=== PATIENT | female | born 1990 | race Caucasian/White ===

== ENCOUNTER 2020-07-21 06:52 | Inpatient (IN) ==
[2020-07-21] MEDS ORDERED: OXYTOCIN 30 UNITS/500 ML BAG IV PRN ×2 (09:32→10:04)
--- NOTE | 2020-07-21 09:32 | Obstetrical Progress Note ---
Date of Service July 21, 2020 Subjective Met pt and spouse pt doing well FHR; CAT1 SROM at 06;00HRs-Clear VE: 3-4/50/-1 ctx irregular EFW by leopards; 8-9lbs will start Pitocin at 10;00 AM if not in spontaneous labor Results & Data ([facility]) Vital Signs (Past 12 Hours) Vital Signs Temp Pulse Resp BP 07/21/20 09:10 36.6 C 122 H 18 135/97 07/21/20 07:42 122 H 135/97 07/21/20 07:28 122 H 135/97 07/21/20 07:04 117 H 161/93 H 07/21/20 07:00 36.8 C 18
[2020-07-21] MEDS: LACTATED RINGER'S 1,000 ML IV PRN ×4 (15:28→23:30)
[2020-07-21] MEDS ORDERED: BUTORPHANOL TARTRATE 1 MG/ML VIAL IV PRN (15:47)
[2020-07-21] MEDS ORDERED: ePHEDrine sulfate 50 MG/ML AMP ONE (16:05)
[2020-07-21] MEDS ORDERED: fentaNYL citrate 100 MCG/2 ML VIAL ONE (16:05)
[2020-07-21] MEDS ORDERED: SODIUM CHLORIDE 0.9% INJ 10 ML VIAL ONE (16:05)
[2020-07-21] MEDS ORDERED: BUPIVACAINE 0.25% 30 ML VIAL ONE (16:05)
[2020-07-21] MEDS ORDERED: fentaNYL 2MCG/ML ROPIVACAINE 1.25MG/ML 100 ML BAG EPI ONE (16:06)
--- NOTE | 2020-07-21 16:10 | Anesthesiology Consultation ---
Date of Service July 21, 2020 Assessment & Plan (1) Encounter for pre-operative examination: Chart Review Chart Review: Acceptable Risk for Labor Epidural Consults Requested none ASA ASA2 Proposed Anesthesia Anesthesia Type: Labor Epidural Risk / Benefits Reviewed With: PT / POA / Parent / Guardian, Accepts Plan and Informed Consent Obtained History Height/Weight Height: 5 ft 8 in Weight: 96 kg Allergies Allergy/AdvReac Type Severity Reaction Status Date / Time Sulfa (Sulfonamide Allergy Unknown Hives Verified 02/03/19 08:42 Antibiotics) Iodinated Contrast Media AdvReac Unknown Hives Verified 02/03/19 08:42 [Iodinated Contrast- Oral and IV Dye] Medications Home Medications Medication Instructions Recorded Confirmed Last Taken multivitamin 1 tab PO QAM 02/01/19 07/21/20 07/20/20 paroxetine HCl [Paxil] 20 mg PO QAM 02/01/19 07/21/20 07/20/20 Active Medications Generic Name Dose Route Start Last Admin Trade Name Freq PRN Reason Stop Dose Admin Butorphanol Tartrate 1 mg 07/21/20 15:47 07/21/20 15:57 Butorphanol Tartrate 1 Mg/Ml Vial IV 08/20/20 15:46 1 mg Q4H PRN Administration Pain Oxytocin 30 units in 500 mls @ 2 mls/hr 07/21/20 09:32 07/21/20 15:30 Pitocin IV 07/23/20 09:31 0.12 units/hr .Q24H PRN 2 mls/hr Labor Induction/Augmentation Administration Protocol 0.12 UNITS/HR Lactated Ringer's 1,000 mls @ 125 mls/hr 07/21/20 10:04 07/21/20 15:29 Lr IV 07/23/20 10:03 999 mls/hr .Q8H PRN Administration L&D Protocol Protocol Past Medical History Medical History Anxiety GERD (gastroesophageal reflux disease) HX Gestational diabetes Exercise / Class Metabolic Activity II 4-5 Yardwork/Stairs/Walk up hill Past Family History Family History Other Hypertension Past Surgical History Surgical History History of esophagogastroduodenoscopy (EGD) History of shoulder surgery History of tooth extraction WISDOM TEETH Past Anesthesia History No Hx of Anesthesia Complications and No Family Hx of Anesthesia Complications History of PONV No Hx of PONV and No Hx of Motion Sickness Social History Smoking Status: Former smoker Do You Dip or Chew Tobacco: No Hx Alcohol Use: Yes Alcohol type: wine alcohol intake frequency: a few times a month Hx Substance Use: No substance use type: does not use Physical Exam Vital Signs Last Vital Signs Temp 98.1 F 07/21/20 15:30 Pulse 123 H 07/21/20 16:07 Resp 18 07/21/20 15:30 BP 139/88 07/21/20 16:01 Pulse Ox 99 07/21/20 16:07 ENMT Mouth: no dentition abnormality Thyromental Distance: > or= 3.5 Finger Breadths Mallampati Class: II Neck normal visual inspection Respiratory normal respiratory effort Auscultation: lungs clear to auscultation bilaterally Cardiovascular Rate/Rhythm: regular rate and regular rhythm
[2020-07-21] MEDS ORDERED: diphenhydrAMINE 50 MG/ML VIAL IV PRN (16:29)
[2020-07-21] MEDS ORDERED: NALOXONE HCL 1 MG in SODIUM CHLORIDE 0.9% 1000ML 1,000 ML IV PRN (16:29)
[2020-07-21] MEDS ORDERED: NALOXONE HCL 0.4 MG/1 ML VIAL/CARP IV PRN (16:29)
[2020-07-21] MEDS ORDERED: fentaNYL 2MCG/ML ROPIVACAINE 1.25MG/ML 100 ML BAG EPI PRN (16:29)
[2020-07-21] MEDS ORDERED: ePHEDrine sulfate 50 MG/ML AMP IV PRN (16:29)
[2020-07-21] MEDS ORDERED: ONDANSETRON INJ 2 MG/ML 2 ML VIAL IV PRN (16:29)
[2020-07-21 16:43] LABS: Hematocrit (blood only) 36.7 % (37-47); Hemoglobin 13.4 g/dL (12.0-16.0); Mean Platelet Volume 12.1 fL (7.4-10.4); Platelet Count 188 K/uL (130-400); RDW Coefficient of Variation 13.6 % (11.5-14.5); Red Blood Count 4.32 M/uL (4.2-5.4); White Blood Count 10.29 K/uL (4.8-10.8)
[2020-07-21 16:44] LABS: Mean Corpuscular Hgb Conc 36.5 g/dL (32-36)
--- NOTE | 2020-07-22 01:03 | Obstetrical Progress Note ---
Date of Service July 22, 2020 Assessment & Plan Admission and Anticipated Discharge Date Admission Date: July 21, 2020 Subjective Pt doing well FHR; CAT1 Ctx 1-3 VE 9/100/-1 On Pitocin Results & Data ([facility]) Vital Signs (Past 12 Hours) Vital Signs Temp Pulse Resp BP Pulse Ox 07/22/20 01:00 127 H 136/79 07/22/20 00:57 110 H 99 07/22/20 00:52 116 H 100 07/22/20 00:49 120 H 137/84 07/22/20 00:47 118 H 99 07/22/20 00:42 101 H 98 07/22/20 00:39 103 H 126/74 07/22/20 00:37 104 H 98 07/22/20 00:32 96 H 99 07/22/20 00:29 95 H 134/74 07/22/20 00:27 97 H 99 07/22/20 00:22 100 H 98 07/22/20 00:19 96 H 140/70 07/22/20 00:17 105 H 97 07/22/20 00:12 101 H 100 07/22/20 00:09 96 H 152/87 H 07/22/20 00:07 100 H 98 07/22/20 00:02 99 H 100 07/22/20 00:00 18 07/21/20 23:59 100 H 140/79 07/21/20 23:57 110 H 99 07/21/20 23:52 96 H 100 07/21/20 23:49 101 H 148/79 H 07/21/20 23:47 100 H 100 07/21/20 23:42 107 H 100 07/21/20 23:39 100 H 155/83 H 07/21/20 23:37 100 H 100 07/21/20 23:32 105 H 100 07/21/20 23:31 18 07/21/20 23:29 93 H 159/85 H 07/21/20 23:27 94 H 100 07/21/20 23:22 106 H 100 07/21/20 23:20 105 H 155/81 H 07/21/20 23:17 102 H 99 07/21/20 23:12 113 H 100 07/21/20 23:10 98 H 142/99 H 07/21/20 23:07 108 H 100 07/21/20 23:02 120 H 100 07/21/20 23:01 37.1 C 18 07/21/20 22:59 115 H 157/94 H 07/21/20 22:57 116 H 99 07/21/20 22:52 98 H 100 07/21/20 22:49 96 H 162/101 H 07/21/20 22:47 102 H 99 07/21/20 22:42 104 H 98 07/21/20 22:39 101 H 174/99 H 07/21/20 22:37 116 H 99 07/21/20 22:32 105 H 99 07/21/20 22:31 18 07/21/20 22:30 95 H 175/91 H 07/21/20 22:27 103 H 100 07/21/20 22:22 89 100 07/21/20 22:19 100 H 172/92 H 07/21/20 22:17 109 H 100 07/21/20 22:12 112 H 100 07/21/20 22:09 98 H 181/95 H 07/21/20 22:07 103 H 100 07/21/20 22:02 103 H 99 07/21/20 22:01 18 07/21/20 21:58 90 165/100 H 07/21/20 21:57 93 H 176/101 H 100 07/21/20 21:52 100 H 100 07/21/20 21:49 93 H 178/103 H 07/21/20 21:47 95 H 100 07/21/20 21:42 96 H 100 07/21/20 21:40 97 H 178/102 H 07/21/20 21:37 93 H 100 07/21/20 21:32 100 H 99 07/21/20 21:29 87 152/101 H 07/21/20 21:27 102 H 100 07/21/20 21:22 37.1 C 94 H 18 100 07/21/20 21:19 97 H 162/92 H 07/21/20 21:17 92 H 100 07/21/20 21:12 88 98 07/21/20 21:09 90 139/90 07/21/20 21:07 89 98 07/21/20 21:02 88 99 07/21/20 21:00 85 147/91 H 07/21/20 20:57 88 98 07/21/20 20:52 86 98 07/21/20 20:49 80 137/88 07/21/20 20:47 97 H 99 07/21/20 20:42 87 99 07/21/20 20:39 98 H 149/96 H 07/21/20 20:37 90 99 07/21/20 20:32 84 99 07/21/20 20:29 86 147/92 H 07/21/20 20:27 84 96 07/21/20 20:22 87 98 07/21/20 20:20 81 145/84 H 07/21/20 20:17 84 97 07/21/20 20:12 93 H 98 07/21/20 20:10 93 H 145/90 H 07/21/20 20:07 88 97 07/21/20 20:02 92 H 97 07/21/20 20:01 18 07/21/20 20:00 91 H 139/99 07/21/20 19:57 91 H 99 07/21/20 19:52 91 H 97 07/21/20 19:48 88 149/92 H 07/21/20 19:47 91 H 98 07/21/20 19:42 91 H 98 07/21/20 19:38 93 H 142/90 H 07/21/20 19:37 98 H 98 07/21/20 19:32 87 98 07/21/20 19:31 18 07/21/20 19:29 93 H 137/89 07/21/20 19:27 86 98 07/21/20 19:22 96 H 97 07/21/20 19:19 83 150/89 H 07/21/20 19:17 90 99 07/21/20 19:15 37.1 C 18 07/21/20 19:12 104 H 98 07/21/20 19:09 101 H 143/95 H 07/21/20 19:07 130 H 98 07/21/20 19:02 120 H 100 07/21/20 19:00 108 H 124/82 07/21/20 18:57 99 H 97 07/21/20 18:52 99 H 98 07/21/20 18:49 83 131/69 07/21/20 18:47 92 H 98 07/21/20 18:42 91 H 97 07/21/20 18:38 91 H 130/65 07/21/20 18:37 96 H 98 07/21/20 18:32 91 H 98 07/21/20 18:30 90 131/68 07/21/20 18:27 94 H 97 07/21/20 18:22 93 H 98 07/21/20 18:19 98 H 125/74 07/21/20 18:17 109 H 98 07/21/20 18:12 92 H 98 07/21/20 18:09 94 H 120/78 07/21/20 18:07 99 H 98 07/21/20 18:02 103 H 98 07/21/20 17:59 88 122/72 07/21/20 17:57 99 H 97 07/21/20 17:52 102 H 99 07/21/20 17:49 118 H 137/88 07/21/20 17:47 103 H 98 07/21/20 17:42 93 H 98 07/21/20 17:39 90 132/79 07/21/20 17:37 99 H 99 07/21/20 17:32 101 H 97 07/21/20 17:30 18 07/21/20 17:29 96 H 149/93 H 07/21/20 17:27 100 H 97 07/21/20 17:22 93 H 98 07/21/20 17:18 93 H 142/91 H 07/21/20 17:17 91 H 99 07/21/20 17:12 87 99 07/21/20 17:08 90 137/89 07/21/20 17:07 91 H 99 07/21/20 17:02 87 99 07/21/20 16:59 88 137/89 07/21/20 16:57 98 H 99 07/21/20 16:56 36.9 C 18 07/21/20 16:52 88 99 07/21/20 16:47 103 H 99 07/21/20 16:46 110 H 134/94 07/21/20 16:43 111 H 129/89 07/21/20 16:42 109 H 100 07/21/20 16:40 105 H 134/89 07/21/20 16:37 116 H 138/89 99 07/21/20 16:34 114 H 141/81 H 07/21/20 16:32 112 H 99 07/21/20 16:31 111 H 145/82 H 07/21/20 16:30 18 07/21/20 16:28 120 H 144/91 H 07/21/20 16:27 117 H 99 07/21/20 16:25 99 H 156/94 H 07/21/20 16:22 105 H 158/99 H 99 07/21/20 16:19 101 H 168/102 H 07/21/20 16:17 115 H 100 07/21/20 16:12 117 H 100 07/21/20 16:11 120 H 175/116 H 07/21/20 16:07 123 H 99 07/21/20 16:01 100 H 139/88 07/21/20 15:51 96 H 136/86 07/21/20 15:41 98 H 147/91 H 07/21/20 15:31 101 H 142/82 H 07/21/20 15:30 36.7 C 18 07/21/20 14:30 18 07/21/20 13:42 36.8 C 18
[2020-07-22] MEDS ORDERED: METHYLERGONOVINE MALEATE 0.2 MG/ML AMP ONE (04:59)
[2020-07-22 05:15] LABS: Base Excess Cord Arterial Bld -3.2 mEq/L (-9-1.8); Base Excess Cord Venous Blood -3.6 mEq/L (-7.7-1.9); CO2 Cord Arterial Blood 37 mmHg (39.1-73.5); Cord Venous Blood HCO3 21 mmol/L (18.4-26.8); Cord Venous Blood PCO2 36 mmHg (30.4-57.2); Cord Venous Blood PO2 27 mmHg (14.1-43.3); Cord Venous Blood pH 7.38 (7.20-7.44); HCO3 Cord Arterial Blood 21 mmol/L (19.7-28.5); PO2 Cord Arterial Blood 27 mmHg (4.1-31.7); pH Cord Arterial Blood 7.38 (7.1-7.38)
[2020-07-22] MEDS: LACTATED RINGER'S 1,000 ML IV PRN ×2 (06:01→07:41)
[2020-07-22] MEDS ORDERED: miSOPROStoL 200 MCG TAB ONE (06:14)
[2020-07-22] MEDS ORDERED: LIDOCAINE HCL 1% 20 ML VIAL ONE (06:18)
[2020-07-22] MEDS ORDERED: METHYLERGONOVINE MALEATE 0.2 MG/ML AMP IM ONE (06:42)
[2020-07-22] MEDS ORDERED: BENZOCAINE 20% AER SPR 82.5 GM CAN EXT PRN (06:42)
[2020-07-22] MEDS ORDERED: SUPERCREAM 0.870% 15 GM JAR EXT PRN (06:42)
[2020-07-22] MEDS ORDERED: ACETAMINOPHEN 325 MG TAB PO PRN (06:42)
[2020-07-22] MEDS ORDERED: miSOPROStoL 200 MCG TAB PR ONE (06:42)
[2020-07-22] MEDS ORDERED: bisacodyL 10 MG SUPP PR PRN (06:42)
[2020-07-22] MEDS ORDERED: DIPHTHERIA/TETANUS/PERTUSSIS 0.5 ML SYR/VIAL IM ONE (06:42)
[2020-07-22] MEDS ORDERED: OXYTOCIN 30 UNITS/500 ML BAG IV PRN (06:42)
[2020-07-22] MEDS: ceFAZolin 1000MG 1,000 MG/7.5 ML SYR IV SCH ×3 (07:18→22:21)
[2020-07-22] MEDS: OXYTOCIN 20 UNITS in LACTATED RINGER'S 1,000 ML IV SCH ×2 (07:46→15:27)
[2020-07-22] MEDS ORDERED: CALCIUM CARBONATE 500 MG CHEWABLE TAB PO ONE (07:58)
[2020-07-22] MEDS ORDERED: CALCIUM CARBONATE 500 MG CHEWABLE TAB ONE (08:05)
[2020-07-22] MEDS: DOCUSATE SODIUM 100 MG CAP PO SCH ×2 (08:44→20:13)
[2020-07-22] MEDS: PRENATAL VITAMIN 1 TAB PO SCH (08:45)
--- NOTE | 2020-07-22 09:40 | Anesthesia Procedure Note ---
Date of Service July 22, 2020 Anesthesia Post Epidural Note Vital Signs Vital Signs: Temp Pulse Resp BP Pulse Ox 98.6 F 120 H 18 89/57 L 99 07/22/20 06:55 07/22/20 09:35 07/22/20 09:20 07/22/20 09:24 07/22/20 09:35 Pain Intensity Lower Abdomen: Pain Intensity: 4 Notes Mental Status: alert / awake / arousable and participated in evaluation Nausea / Vomiting: adequately controlled Pain: adequately controlled Airway Patency, RR, SpO2: stable & adequate BP & HR: stable & adequate Hydration State: stable & adequate Neuraxial Anesthesia: was administered and sensory block is resolving Anesthetic Complications: no major complications apparent and Pt Satisfied with anesthetic care Epidural: Removed without complications and With tip intact
[2020-07-22] MEDS: IBUPROFEN 600 MG TAB PO PRN ×2 (12:52→20:13)
[2020-07-22 12:54] LABS: Hematocrit (blood only) 23.9 % (37-47); Hemoglobin 8.9 g/dL (12.0-16.0)
[2020-07-22] MEDS: SERTRALINE HCL 50 MG TABLET PO SCH (13:10)
[2020-07-22] MEDS ORDERED: SERTRALINE HCL 50 MG TABLET PO SCH (21:00)
[2020-07-23] MEDS: IBUPROFEN 600 MG TAB PO PRN ×2 (06:01→15:34)
--- NOTE | 2020-07-23 08:01 | Delivery Summary ---
DATE OF OPERATION: 07/22/2020 The patient delivered a live infant in occiput anterior presentation with tight nuchal cord. Nuchal cord was clamped and cut. Infant was delivered and placed on mother's abdomen. Cord blood and cord gases were obtained. Placenta was not spontaneously delivered and it was therefore manually removed. A banjo curette and ultrasound was brought to the bedside and curettage of the uterus was performed at the bedside. There was good hemostasis. On ultrasound, it appeared that there were no retained products. Examination of the vagina and perineum showed a third-degree midline laceration. This was repaired in layers with 2-0 and 3-0 Vicryl. Rectal exam post repair showed good sphincter tone. There are no sutures palpated in the rectum. There was good hemostasis. The infant's weight and Apgars in the pediatric record. All instruments were removed from the vagina and accounted for x2 including sponges, needles and retractors. Estimated blood loss is 600 mL. I attest to the content of the Intraoperative Record and any orders documented therein. Any exception s are noted below.
[2020-07-23] MEDS: ceFAZolin 1000MG 1,000 MG/7.5 ML SYR IV SCH ×3 (08:09→23:38)
[2020-07-23] MEDS: DOCUSATE SODIUM 100 MG CAP PO SCH ×2 (08:14→21:04)
[2020-07-23] MEDS: PRENATAL VITAMIN 1 TAB PO SCH (08:14)
--- NOTE | 2020-07-23 10:55 | Obstetrical Progress Note ---
Date of Service July 23, 2020 Assessment & Plan Admission and Anticipated Discharge Date Admission Date: July 21, 2020 Subjective Patient is seen and examined. She feels well, no complaints. Ambulating without dizziness Voiding without difficulty Tolerating regular diet with out N&V Bleeding is minimal No fever/ chills/ CP/ SOB/ N&V/ Leg pain Breast feeding without problems Vital Signs Temp Pulse Pulse Resp BP BP Pulse Ox 07/23/20 08:15 36.4 C L 106 H 16 109/71 98 07/23/20 04:00 36.7 C 93 H 18 117/72 07/22/20 23:30 36.9 C 101 H 18 108/69 07/22/20 20:15 36.9 C 130 H 18 127/83 99 07/22/20 15:15 37 C 114 H 16 113/73 97 07/22/20 13:15 37.0 C 136 H 18 119/75 07/22/20 13:00 37.0 C 16 07/22/20 12:55 139 H 99 07/22/20 12:54 136 H 119/75 07/22/20 12:50 139 H 99 07/22/20 12:45 139 H 99 07/22/20 12:40 141 H 127/60 99 07/22/20 12:35 136 H 100 07/22/20 12:30 135 H 99 07/22/20 12:25 138 H 99 07/22/20 12:24 142 H 119/69 07/22/20 12:20 146 H 99 07/22/20 12:15 134 H 100 07/22/20 12:10 128 H 117/75 100 07/22/20 12:05 134 H 100 07/22/20 12:00 134 H 99 07/22/20 11:55 133 H 99 07/22/20 11:54 131 H 118/57 L 07/22/20 11:50 133 H 99 07/22/20 11:45 137 H 99 07/22/20 11:40 140 H 98 07/22/20 11:39 136 H 118/57 L 07/22/20 11:35 144 H 99 07/22/20 11:30 146 H 98 07/22/20 11:25 139 H 98 07/22/20 11:24 144 H 126/59 L 07/22/20 11:20 144 H 98 07/22/20 11:15 150 H 133/79 99 07/22/20 11:10 148 H 98 07/22/20 11:06 37.0 C 16 07/22/20 11:05 156 H 98 07/22/20 11:00 155 H 99 07/22/20 10:55 153 H 99 Intake and Output 07/22/20 07/23/20 07/23/20 22:59 06:59 14:59 Intake Total 1377.084 / 2714.584 Output Total 1100 / 1100 Balance 1377.084 / 1614.584 -1100 / 1614.584 Intake: IV 1377.084 / 2714.584 Pitocin 20 Units In Lr 1,000 ml 1377.084 / 1377.084 @ 125 mls/hr IV .Q8H1M JOSE ANGEL Rx# :[id number] Output: Urine 1100 / 1100 Other: # Unmeasured Voids 1 PE: General: Alert, orientedx3, NAD Abd: soft, NT, fundus firm, below Umbilicus Perineum intact, Lochia rubra minimal Ext; NT, no edema AP: 30 yo s/p , ppd# 1 VSS Afebrile doing well Am CBC pending Start iron Continue routine care All questions were answered D/C home tomorrow Results & Data ([facility]) Vital Signs (Past 12 Hours) Vital Signs Temp Pulse Resp BP Pulse Ox 07/23/20 08:15 36.4 C L 106 H 16 109/71 98 07/23/20 04:00 36.7 C 93 H 18 117/72 07/22/20 23:30 36.9 C 101 H 18 108/69
[2020-07-23 11:25] LABS: Hemoglobin 6.9 g/dL (12.0-16.0); Mean Corpuscular Hemoglobin 31.1 pg (25-34); Mean Corpuscular Hgb Conc 36.3 g/dL (32-36); Mean Corpuscular Volume 85.6 fL (80-100); Platelet Count 153 K/uL (130-400); RDW Coefficient of Variation 14.4 % (11.5-14.5); Red Blood Count 2.22 M/uL (4.2-5.4); White Blood Count 11.42 K/uL (4.8-10.8)
[2020-07-23] MEDS ORDERED: diphenhydrAMINE Capsule 25 MG CAP PO ONE (11:35)
[2020-07-23] MEDS ORDERED: SODIUM CHLORIDE 0.9% 250 ML IV PRN (11:35)
--- NOTE | 2020-07-23 11:39 | Obstetrical Progress Note ---
Date of Service July 23, 2020 Assessment & Plan Admission and Anticipated Discharge Date Admission Date: July 21, 2020 Subjective Patient is reevaluated Hemoglobin is 6.9 hematocrit is 19 Patient states she was dizzy lightheaded yesterday feels better today She just feels tired and weak Pulse has been elevated since Discussed blood transfusion with risks and benefits versus oral iron therapy She understands all and accepts blood transfusion She signed an informed consent. Lab Results 07/21/20 07/21/20 07/22/20 Range/Units 10:21 10:21 04:51 WBC 10.29 (4.8-10.8) K/uL RBC 4.32 (4.2-5.4) M/uL Hgb 13.4 (12.0-16.0) g/dL Hct 36.7 L (37-47) % MCV 85.0 (80-100) fL MCH 31.0 (25-34) pg MCHC 36.5 H (32-36) g/dL RDW Std Deviation 42.0 (36.4-46.3) fL RDW Coeff of Neeta 13.6 (11.5-14.5) % Plt Count 188 (130-400) K/uL MPV 12.1 H (7.4-10.4) fL Cord ABG pH 7.38 (7.1-7.38) Cord ABG pCO2 37 L (39.1-73.5) mmHg Cord ABG pO2 27 (4.1-31.7) mmHg Cord ABG HCO3 21 (19.7-28.5) mmol/L Cord ABG Base Excess -3.2 (-9-1.8) mEq/L Cord ABG O2 Sat 62.0 H (<60) % Cord VBG pH (7.20-7.44) Cord VBG pCO2 (30.4-57.2) mmHg Cord VBG pO2 (14.1-43.3) mmHg Cord VBG HCO3 (18.4-26.8) mmol/L Cord VBG Base Excess (-7.7-1.9) mEq/L Cord VBG O2 Sat (<68) % Blood Gas Comments PLATA Crossmatch See Detail 07/22/20 07/22/20 07/23/20 Range/Units 04:51 12:40 10:52 WBC 11.42 H (4.8-10.8) K/uL RBC 2.22 L (4.2-5.4) M/uL Hgb 8.9 L D 6.9 L* (12.0-16.0) g/dL Hct 23.9 L 19.0 L* (37-47) % MCV 85.6 (80-100) fL MCH 31.1 (25-34) pg MCHC 36.3 H (32-36) g/dL RDW Std Deviation 44.0 (36.4-46.3) fL RDW Coeff of Neeta 14.4 (11.5-14.5) % Plt Count 153 (130-400) K/uL MPV 11.0 H (7.4-10.4) fL Cord ABG pH (7.1-7.38) Cord ABG pCO2 (39.1-73.5) mmHg Cord ABG pO2 (4.1-31.7) mmHg Cord ABG HCO3 (19.7-28.5) mmol/L Cord ABG Base Excess (-9-1.8) mEq/L Cord ABG O2 Sat (<60) % Cord VBG pH 7.38 (7.20-7.44) Cord VBG pCO2 36 (30.4-57.2) mmHg Cord VBG pO2 27 (14.1-43.3) mmHg Cord VBG HCO3 21 (18.4-26.8) mmol/L Cord VBG Base Excess -3.6 (-7.7-1.9) mEq/L Cord VBG O2 Sat 65.0 (<68) % Blood Gas Comments PLATA Crossmatch Results & Data ([facility]) Vital Signs (Past 12 Hours) Vital Signs Temp Pulse Resp BP Pulse Ox 07/23/20 08:15 36.4 C L 106 H 16 109/71 98 07/23/20 04:00 36.7 C 93 H 18 117/72
[2020-07-23] MEDS: SERTRALINE HCL 50 MG TABLET PO SCH (12:03)
[2020-07-23] MEDS: FERROUS SULFATE 325 MG TAB PO SCH ×2 (12:03→18:53)
--- NOTE | 2020-07-23 15:42 | Obstetrical Progress Note ---
Date of Service July 23, 2020 Assessment & Plan Admission and Anticipated Discharge Date Admission Date: July 21, 2020 Subjective Patient received 1st unit of PRBCC and feels better already No side effects nor rx VSS Afebrile Breast feeding her baby Continue to monitor and Results & Data ([facility]) Vital Signs (Past 12 Hours) Vital Signs Temp Pulse Pulse Resp BP BP Pulse Ox 07/23/20 14:15 37.2 C 109 H 16 126/81 98 07/23/20 13:45 36.8 C 112 H 20 125/80 97 07/23/20 13:30 37.0 C 112 H 18 128/83 97 07/23/20 13:11 36.5 C 120 H 18 135/86 99 07/23/20 12:34 37 C 121 H 16 109/71 07/23/20 08:15 36.4 C L 106 H 16 109/71 98 07/23/20 04:00 36.7 C 93 H 18 117/72
--- NOTE | 2020-07-23 17:13 | Obstetrical Progress Note ---
Date of Service July 23, 2020 Assessment & Plan Admission and Anticipated Discharge Date Admission Date: July 21, 2020 Subjective I was called that patient blood pressure went up, after second unit of packed red blood cell was started I came to see the patient who is nervous and crying. She felt right flank pain and cold sensation for about 30 seconds after second unit was started. Now she feels well no complaints other than being nervous. Patient denies headache, change in her vision, chest pain, shortness of breath, abdominal pain no leg pain. Her blood pressure was 167/99, repeat is 147/85. Pulse is 105 and pulse ox is 100% in room air. Physical exam Cardiovascular system, S1-S2 RRR Lungs clear to auscultation bilaterally Back, symmetric nontender no lesions No CVA tenderness bilaterally Abdomen soft nontender nondistended fundus firm, -3, vaginal bleeding scant Extremities, nontender no edema, Homans' sign negative bilaterally, hip motions nontender. Second unit of blood was held in taking back by blood bank team Plan to observe continuously and run some blood work and urine test for transfusion reaction. Results & Data ([facility]) Vital Signs (Past 12 Hours) Vital Signs Temp Pulse Pulse Resp BP BP Pulse Ox 07/23/20 16:32 36.5 C 99 H 16 125/81 98 07/23/20 15:15 36.7 C 103 H 16 119/83 99 07/23/20 14:15 37.2 C 109 H 16 126/81 98 07/23/20 13:45 36.8 C 112 H 20 125/80 97 07/23/20 13:30 37.0 C 112 H 18 128/83 97 07/23/20 13:11 36.5 C 120 H 18 135/86 99 07/23/20 12:34 37 C 121 H 16 109/71 07/23/20 08:15 36.4 C L 106 H 16 109/71 98
[2020-07-23 17:36] LABS: Hematocrit (blood only) 20.7 % (37-47); Hemoglobin 7.3 g/dL (12.0-16.0); Mean Corpuscular Hemoglobin 30.7 pg (25-34); Mean Corpuscular Hgb Conc 35.3 g/dL (32-36); Platelet Count 160 K/uL (130-400); RDW Coefficient of Variation 14.3 % (11.5-14.5); RDW Standard Deviation 44.2 fL (36.4-46.3); Red Blood Count 2.38 M/uL (4.2-5.4); White Blood Count 9.06 K/uL (4.8-10.8)
[2020-07-23 17:51] LABS: Basophils # (auto) 0.01 K/uL (0-0.2); Basophils % (auto) 0.1 %; Eosinophils # (auto) 0.02 K/uL (0-0.5); Eosinophils % (auto) 0.2 %; Immature Granulocytes # (auto) 0.03 K/uL (0.00-0.02); Immature Granulocytes % (auto) 0.3 %; Lymphocytes # (auto) 2.08 K/uL (1.2-3.4); Monocytes # (auto) 0.39 K/uL (0.11-0.59); Monocytes % (auto) 4.3 %; Neutrophils # (auto) 6.53 K/uL (1.4-6.5); Neutrophils % (auto) 72.1 %; RBC Morphology Unremarkable
[2020-07-23 17:56] LABS: Albumin Level 1.8 gm/dl (3.4-5.0); BUN Creatinine Ratio 11.6 (10-20); Calcium 7.8 mg/dl (8.5-10.1); Creatinine Clr Calc Pharmacy 161.9 ml/min; Est GFR (Non-African American) 120.8; Potassium 3.9 mmol/L (3.5-5.1)
[2020-07-23 17:59] LABS: Albumin Globulin Ratio 0.6 (0.9-2); Bilirubin,Total 0.4 mg/dl (0.2-1); Globulin 3.1 gm/dl (2.5-4.0); Total Protein 4.9 gm/dl (6.4-8.2)
--- NOTE | 2020-07-23 18:17 | Obstetrical Progress Note ---
Date of Service July 23, 2020 Assessment & Plan Admission and Anticipated Discharge Date Admission Date: July 21, 2020 Subjective Patient is reevaluated. She feels much better, no complaints. She is up to bathroom voided and ambulated in room without dizziness. H&H is slightly higher now and U/A is pending. Last BP: 148/ 90 Pulse ox: 99% RA Abnormal lab results 07/21/20 07/23/20 07/23/20 Range/Units 10:21 10:52 17:19 WBC 11.42 H (4.8-10.8) K/uL RBC 2.22 L 2.38 L (4.2-5.4) M/uL Hgb 6.9 L* 7.3 L (12.0-16.0) g/dL Hct 19.0 L* 20.7 L* (37-47) % MCHC 36.3 H (32-36) g/dL MPV 11.0 H 11.0 H (7.4-10.4) fL Neut # (Auto) 6.53 H (1.4-6.5) K/uL Immature Gran # (Auto) 0.03 H (0.00-0.02) K/uL Chloride (98-107) mmol/L Calcium (8.5-10.1) mg/dl Total Protein (6.4-8.2) gm/dl Albumin (3.4-5.0) gm/dl Albumin/Globulin Ratio (0.9-2) Crossmatch See Detail 07/23/20 Range/Units 17:19 WBC (4.8-10.8) K/uL RBC (4.2-5.4) M/uL Hgb (12.0-16.0) g/dL Hct (37-47) % MCHC (32-36) g/dL MPV (7.4-10.4) fL Neut # (Auto) (1.4-6.5) K/uL Immature Gran # (Auto) (0.00-0.02) K/uL Chloride 113 H (98-107) mmol/L Calcium 7.8 L (8.5-10.1) mg/dl Total Protein 4.9 L (6.4-8.2) gm/dl Albumin 1.8 L (3.4-5.0) gm/dl Albumin/Globulin Ratio 0.6 L (0.9-2) Crossmatch Discussed holding on 2nd unit and continue with oral iron therapy and iron rich food Discussed how to take iron All questions were answered Results & Data ([facility]) Vital Signs (Past 12 Hours) Vital Signs Temp Pulse Pulse Resp BP BP Pulse Ox 07/23/20 17:13 120 H 18 160/98 H 100 07/23/20 16:32 36.5 C 99 H 16 125/81 98 07/23/20 15:15 36.7 C 103 H 16 119/83 99 07/23/20 14:15 37.2 C 109 H 16 126/81 98 07/23/20 13:45 36.8 C 112 H 20 125/80 97 07/23/20 13:30 37.0 C 112 H 18 128/83 97 07/23/20 13:11 36.5 C 120 H 18 135/86 99 07/23/20 12:34 37 C 121 H 16 109/71 07/23/20 08:15 36.4 C L 106 H 16 109/71 98
[2020-07-23 18:49] LABS: Blood Urine 1+ (Negative)
[2020-07-23] MEDS ORDERED: bisacodyL 5 MG TABEC PO SCH (20:00)
[2020-07-23 21:38] LABS: Hematocrit (blood only) 20.9 % (37-47); Hemoglobin 7.3 g/dL (12.0-16.0); Mean Corpuscular Hemoglobin 30.3 pg (25-34); Mean Corpuscular Hgb Conc 34.9 g/dL (32-36); Mean Corpuscular Volume 86.7 fL (80-100); Mean Platelet Volume 10.7 fL (7.4-10.4); Platelet Count 156 K/uL (130-400); RDW Coefficient of Variation 14.1 % (11.5-14.5); Red Blood Count 2.41 M/uL (4.2-5.4); White Blood Count 8.53 K/uL (4.8-10.8)
[2020-07-23 22:39] LABS: Basophils # (auto) 0.02 K/uL (0-0.2); Basophils % (auto) 0.2 %; Eosinophils # (auto) 0.01 K/uL (0-0.5); Eosinophils % (auto) 0.1 %; Immature Granulocytes # (auto) 0.02 K/uL (0.00-0.02); Immature Granulocytes % (auto) 0.2 %; Lymphocytes # (auto) 1.79 K/uL (1.2-3.4); Monocytes # (auto) 0.45 K/uL (0.11-0.59); Monocytes % (auto) 5.3 %; Neutrophils # (auto) 6.24 K/uL (1.4-6.5); Neutrophils % (auto) 73.2 %; RBC Morphology Unremarkable
[2020-07-24 06:33] LABS: Hematocrit (blood only) 20.5 % (37-47); Hemoglobin 7.4 g/dL (12.0-16.0)
[2020-07-24] MEDS: FERROUS SULFATE 325 MG TAB PO SCH (07:33)
[2020-07-24] MEDS: ceFAZolin 1000MG 1,000 MG/7.5 ML SYR IV SCH ×2 (07:33→15:16)
[2020-07-24] MEDS: PRENATAL VITAMIN 1 TAB PO SCH (08:40)
[2020-07-24] MEDS: DOCUSATE SODIUM 100 MG CAP PO SCH ×2 (08:40→21:49)
[2020-07-24] MEDS: IBUPROFEN 600 MG TAB PO PRN ×2 (08:40→17:32)
[2020-07-24] MEDS: HYDROCORTISONE ACETATE 25 MG SUPP PR PRN (09:31)
--- NOTE | 2020-07-24 12:45 | Obstetrical Progress Note ---
Date of Service July 24, 2020 Assessment & Plan (1) Normal course: PPD #2 s/p retained placenta' Anemia PP- Pt received 1 unit PRBC Suspected transfusion Rx on an attempt for a second unit- transfusion was therefore terminated pt is however doing well H/H; Improved tachycardia, malaise or fatigue Plan Pt wants to stay one more day for monitoring anticipate disch tomorrow Subjective Ambulation: ambulating normally Voiding: no voiding problems Passing Gas:: Yes Diet Tolerance:: regular diet Lochia:: Small Feeding Type:: breast feeding Review of Systems All systems reviewed & are unremarkable except as noted in HPI & below Physical Exam Constitutional WD/WN, vitals as above well developed and well nourished Eyes PERRL, conjunctivae normal, anicteric sclerae Neck trachea midline, no thyromegaly Respiratory normal respiratory effort, lungs clear to auscultation Auscultation: no crackles, no rales and no wheezes Cardiovascular RRR, no murmur, no edema Gastrointestinal (Abdomen) normal bowel sounds, soft, nontender, no hepatosplenomegaly Uterus is below umbilicus Musculoskeletal no cyanosis or clubbing, extremities motor strength 5/5 Skin no rashes, warm and dry Neurologic patellar DTR's 2+ bilat, sensation intact Psychiatric A+Ox3, euthymic affect Genitourinary normal external appearance Results & Data ([facility]) Vital Signs (Past 12 Hours) Vital Signs Temp Pulse Pulse Resp BP Pulse Ox 07/24/20 07:30 36.9 C 96 H 18 133/89 98 07/24/20 04:30 36.7 C 96 H 18 125/86 100
[2020-07-24] MEDS: SERTRALINE HCL 50 MG TABLET PO SCH (13:16)
[2020-07-25] MEDS: IBUPROFEN 600 MG TAB PO PRN (06:27)
[2020-07-25] MEDS: FERROUS SULFATE 325 MG TAB PO SCH (07:55)
[2020-07-25 08:29] LABS: Basophils # (auto) 0.03 K/uL (0-0.2); Basophils % (auto) 0.4 %; Eosinophils # (auto) 0.07 K/uL (0-0.5); Hematocrit (blood only) 22.2 % (37-47); Hemoglobin 7.7 g/dL (12.0-16.0); Immature Granulocytes # (auto) 0.06 K/uL (0.00-0.02); Immature Granulocytes % (auto) 0.9 %; Lymphocytes # (auto) 1.82 K/uL (1.2-3.4); Lymphocytes % (auto) 26.8 %; Mean Corpuscular Hemoglobin 30.4 pg (25-34); Mean Corpuscular Hgb Conc 34.7 g/dL (32-36); Mean Corpuscular Volume 87.7 fL (80-100); Mean Platelet Volume 10.2 fL (7.4-10.4); Monocytes % (auto) 4.4 %; Neutrophils # (auto) 4.51 K/uL (1.4-6.5); Neutrophils % (auto) 66.5 %; Nucleated RBC # (auto) 0.02 K/uL (0-0); Nucleated RBC % (auto) 0.4 %; Platelet Count 208 K/uL (130-400); RDW Coefficient of Variation 14.4 % (11.5-14.5); RDW Standard Deviation 44.7 fL (36.4-46.3); Red Blood Count 2.53 M/uL (4.2-5.4); White Blood Count 6.79 K/uL (4.8-10.8)
[2020-07-25] MEDS: PRENATAL VITAMIN 1 TAB PO SCH (08:38)
[2020-07-25] MEDS: DOCUSATE SODIUM 100 MG CAP PO SCH (08:38)
[2020-07-25] MEDS: HYDROCORTISONE ACETATE 25 MG SUPP PR PRN (08:38)
--- NOTE | 2020-07-25 08:58 | Obstetrical Progress Note ---
Date of Service July 25, 2020 Assessment & Plan Admission and Anticipated Discharge Date Admission Date: July 21, 2020 Subjective Patient is seen and examined. She feels well, much better, no complaints. Desires d/c today Ambulating without dizziness Voiding without difficulty Tolerating regular diet with out N&V Bleeding is minimal No fever/ chills/ CP/ SOB/ N&V/ Leg pain Breast feeding without problems Lab Results 07/21/20 07/21/20 07/22/20 Range/Units 10:21 10:21 04:51 WBC 10.29 (4.8-10.8) K/uL RBC 4.32 (4.2-5.4) M/uL Hgb 13.4 (12.0-16.0) g/dL Hct 36.7 L (37-47) % MCV 85.0 (80-100) fL MCH 31.0 (25-34) pg MCHC 36.5 H (32-36) g/dL RDW Std Deviation 42.0 (36.4-46.3) fL RDW Coeff of Neeta 13.6 (11.5-14.5) % Plt Count 188 (130-400) K/uL MPV 12.1 H (7.4-10.4) fL Immature Gran % (Auto) % Neut % (Auto) % Lymph % (Auto) % Mercer % (Auto) % Eos % (Auto) % Baso % (Auto) % Neut # (Auto) (1.4-6.5) K/uL Lymph # (Auto) (1.2-3.4) K/uL Mercer # (Auto) (0.11-0.59) K/uL Eos # (Auto) (0-0.5) K/uL Baso # (Auto) (0-0.2) K/uL Immature Gran # (Auto) (0.00-0.02) K/uL Absolute Nucleated RBC (0-0) K/uL Nucleated RBC % (auto) % RBC Morphology Cord ABG pH 7.38 (7.1-7.38) Cord ABG pCO2 37 L (39.1-73.5) mmHg Cord ABG pO2 27 (4.1-31.7) mmHg Cord ABG HCO3 21 (19.7-28.5) mmol/L Cord ABG Base Excess -3.2 (-9-1.8) mEq/L Cord ABG O2 Sat 62.0 H (<60) % Cord VBG pH (7.20-7.44) Cord VBG pCO2 (30.4-57.2) mmHg Cord VBG pO2 (14.1-43.3) mmHg Cord VBG HCO3 (18.4-26.8) mmol/L Cord VBG Base Excess (-7.7-1.9) mEq/L Cord VBG O2 Sat (<68) % Blood Gas Comments PLATA Sodium (136-145) mmol/L Potassium (3.5-5.1) mmol/L Chloride (98-107) mmol/L Carbon Dioxide (21-32) mmol/L Anion Gap (3-11) BUN (7-18) mg/dl Creatinine (0.6-1.2) mg/dl Est Cr Clr Drug Dosing ml/min Est GFR ( Amer) Est GFR (Non-Af Amer) BUN/Creatinine Ratio (10-20) Glucose (70-99) mg/dl Calcium (8.5-10.1) mg/dl Total Bilirubin (0.2-1) mg/dl AST (15-37) U/L ALT (12-78) U/L Alkaline Phosphatase (45-117) U/L Total Protein (6.4-8.2) gm/dl Albumin (3.4-5.0) gm/dl Globulin (2.5-4.0) gm/dl Albumin/Globulin Ratio (0.9-2) Urine Blood (Negative) Urine RBC (Auto) (0-4) /hpf Blood Type A Positive Blood Type Recheck Antibody Screen NEGATIVE Crossmatch See Detail Transfusion React Date Transfusion React Time Tx React Symptoms Reaction Clerical Check Lab Clerical Err Check React Component Return Volume Returned Pre-Trans Blood Type Pre-Trans Vis Hemolysis Pre-Trans RYLAN (Negative) Pre-Trans RYLAN IgG (Negative) Pre-Trans RYLAN Poly (Negative) Pre-Trans RYLAN C3b, C3d (Negative) Post-Trans Blood Type Post-Tx Visible Hemolys Post-Trans RYLAN (Negative) Post-Trans RYLAN IgG (Negative) Post-Trans RYLAN Poly (Negative) Post-Trans RYLAN C3b, C3d (Negative) Post-Trans Ur Hemoglobin Reaction Path Interpret Transfusion Serv Com 07/22/20 07/22/20 07/23/20 Range/Units 04:51 12:40 10:52 WBC 11.42 H (4.8-10.8) K/uL RBC 2.22 L (4.2-5.4) M/uL Hgb 8.9 L D 6.9 L* (12.0-16.0) g/dL Hct 23.9 L 19.0 L* (37-47) % MCV 85.6 (80-100) fL MCH 31.1 (25-34) pg MCHC 36.3 H (32-36) g/dL RDW Std Deviation 44.0 (36.4-46.3) fL RDW Coeff of Neeta 14.4 (11.5-14.5) % Plt Count 153 (130-400) K/uL MPV 11.0 H (7.4-10.4) fL Immature Gran % (Auto) % Neut % (Auto) % Lymph % (Auto) % Mercer % (Auto) % Eos % (Auto) % Baso % (Auto) % Neut # (Auto) (1.4-6.5) K/uL Lymph # (Auto) (1.2-3.4) K/uL Mercer # (Auto) (0.11-0.59) K/uL Eos # (Auto) (0-0.5) K/uL Baso # (Auto) (0-0.2) K/uL Immature Gran # (Auto) (0.00-0.02) K/uL Absolute Nucleated RBC (0-0) K/uL Nucleated RBC % (auto) % RBC Morphology Cord ABG pH (7.1-7.38) Cord ABG pCO2 (39.1-73.5) mmHg Cord ABG pO2 (4.1-31.7) mmHg Cord ABG HCO3 (19.7-28.5) mmol/L Cord ABG Base Excess (-9-1.8) mEq/L Cord ABG O2 Sat (<60) % Cord VBG pH 7.38 (7.20-7.44) Cord VBG pCO2 36 (30.4-57.2) mmHg Cord VBG pO2 27 (14.1-43.3) mmHg Cord VBG HCO3 21 (18.4-26.8) mmol/L Cord VBG Base Excess -3.6 (-7.7-1.9) mEq/L Cord VBG O2 Sat 65.0 (<68) % Blood Gas Comments PLATA Sodium (136-145) mmol/L Potassium (3.5-5.1) mmol/L Chloride (98-107) mmol/L Carbon Dioxide (21-32) mmol/L Anion Gap (3-11) BUN (7-18) mg/dl Creatinine (0.6-1.2) mg/dl Est Cr Clr Drug Dosing ml/min Est GFR ( Amer) Est GFR (Non-Af Amer) BUN/Creatinine Ratio (10-20) Glucose (70-99) mg/dl Calcium (8.5-10.1) mg/dl Total Bilirubin (0.2-1) mg/dl AST (15-37) U/L ALT (12-78) U/L Alkaline Phosphatase (45-117) U/L Total Protein (6.4-8.2) gm/dl Albumin (3.4-5.0) gm/dl Globulin (2.5-4.0) gm/dl Albumin/Globulin Ratio (0.9-2) Urine Blood (Negative) Urine RBC (Auto) (0-4) /hpf Blood Type Blood Type Recheck Antibody Screen Crossmatch Transfusion React Date Transfusion React Time Tx React Symptoms Reaction Clerical Check Lab Clerical Err Check React Component Return Volume Returned Pre-Trans Blood Type Pre-Trans Vis Hemolysis Pre-Trans RYLAN (Negative) Pre-Trans RYLAN IgG (Negative) Pre-Trans RYLAN Poly (Negative) Pre-Trans RYLAN C3b, C3d (Negative) Post-Trans Blood Type Post-Tx Visible Hemolys Post-Trans RYLAN (Negative) Post-Trans RYLAN IgG (Negative) Post-Trans RYLAN Poly (Negative) Post-Trans RYLAN C3b, C3d (Negative) Post-Trans Ur Hemoglobin Reaction Path Interpret Transfusion Serv Com 07/23/20 07/23/20 07/23/20 Range/Units 10:52 17:19 17:19 WBC 9.06 (4.8-10.8) K/uL RBC 2.38 L (4.2-5.4) M/uL Hgb 7.3 L (12.0-16.0) g/dL Hct 20.7 L* (37-47) % MCV 87.0 (80-100) fL MCH 30.7 (25-34) pg MCHC 35.3 (32-36) g/dL RDW Std Deviation 44.2 (36.4-46.3) fL RDW Coeff of Neeta 14.3 (11.5-14.5) % Plt Count 160 (130-400) K/uL MPV 11.0 H (7.4-10.4) fL Immature Gran % (Auto) 0.3 % Neut % (Auto) 72.1 % Lymph % (Auto) 23.0 % Mercer % (Auto) 4.3 % Eos % (Auto) 0.2 % Baso % (Auto) 0.1 % Neut # (Auto) 6.53 H (1.4-6.5) K/uL Lymph # (Auto) 2.08 (1.2-3.4) K/uL Mercer # (Auto) 0.39 (0.11-0.59) K/uL Eos # (Auto) 0.02 (0-0.5) K/uL Baso # (Auto) 0.01 (0-0.2) K/uL Immature Gran # (Auto) 0.03 H (0.00-0.02) K/uL Absolute Nucleated RBC (0-0) K/uL Nucleated RBC % (auto) % RBC Morphology Unremarkable Cord ABG pH (7.1-7.38) Cord ABG pCO2 (39.1-73.5) mmHg Cord ABG pO2 (4.1-31.7) mmHg Cord ABG HCO3 (19.7-28.5) mmol/L Cord ABG Base Excess (-9-1.8) mEq/L Cord ABG O2 Sat (<60) % Cord VBG pH (7.20-7.44) Cord VBG pCO2 (30.4-57.2) mmHg Cord VBG pO2 (14.1-43.3) mmHg Cord VBG HCO3 (18.4-26.8) mmol/L Cord VBG Base Excess (-7.7-1.9) mEq/L Cord VBG O2 Sat (<68) % Blood Gas Comments Sodium 142 (136-145) mmol/L Potassium 3.9 (3.5-5.1) mmol/L Chloride 113 H (98-107) mmol/L Carbon Dioxide 23 (21-32) mmol/L Anion Gap 6.0 (3-11) BUN 7 (7-18) mg/dl Creatinine 0.61 (0.6-1.2) mg/dl Est Cr Clr Drug Dosing 161.9 ml/min Est GFR ( Amer) 140.0 Est GFR (Non-Af Amer) 120.8 BUN/Creatinine Ratio 11.6 (10-20) Glucose 89 (70-99) mg/dl Calcium 7.8 L (8.5-10.1) mg/dl Total Bilirubin 0.4 (0.2-1) mg/dl AST 37 (15-37) U/L ALT 14 (12-78) U/L Alkaline Phosphatase 97 (45-117) U/L Total Protein 4.9 L (6.4-8.2) gm/dl Albumin 1.8 L (3.4-5.0) gm/dl Globulin 3.1 (2.5-4.0) gm/dl Albumin/Globulin Ratio 0.6 L (0.9-2) Urine Blood (Negative) Urine RBC (Auto) (0-4) /hpf Blood Type Blood Type Recheck A Positive Antibody Screen Crossmatch Transfusion React Date Transfusion React Time Tx React Symptoms Reaction Clerical Check Lab Clerical Err Check React Component Return Volume Returned Pre-Trans Blood Type Pre-Trans Vis Hemolysis Pre-Trans RYLAN (Negative) Pre-Trans RYLAN IgG (Negative) Pre-Trans RYLAN Poly (Negative) Pre-Trans RYLAN C3b, C3d (Negative) Post-Trans Blood Type Post-Tx Visible Hemolys Post-Trans RYLAN (Negative) Post-Trans RYLAN IgG (Negative) Post-Trans RYLAN Poly (Negative) Post-Trans RYLAN C3b, C3d (Negative) Post-Trans Ur Hemoglobin Reaction Path Interpret Transfusion Serv Com 07/23/20 07/23/20 07/23/20 Range/Units 17:19 18:10 21:18 WBC 8.53 (4.8-10.8) K/uL RBC 2.41 L (4.2-5.4) M/uL Hgb 7.3 L (12.0-16.0) g/dL Hct 20.9 L* (37-47) % MCV 86.7 (80-100) fL MCH 30.3 (25-34) pg MCHC 34.9 (32-36) g/dL RDW Std Deviation 44.0 (36.4-46.3) fL RDW Coeff of Neeta 14.1 (11.5-14.5) % Plt Count 156 (130-400) K/uL MPV 10.7 H (7.4-10.4) fL Immature Gran % (Auto) 0.2 % Neut % (Auto) 73.2 % Lymph % (Auto) 21.0 % Mercer % (Auto) 5.3 % Eos % (Auto) 0.1 % Baso % (Auto) 0.2 % Neut # (Auto) 6.24 (1.4-6.5) K/uL Lymph # (Auto) 1.79 (1.2-3.4) K/uL Mercer # (Auto) 0.45 (0.11-0.59) K/uL Eos # (Auto) 0.01 (0-0.5) K/uL Baso # (Auto) 0.02 (0-0.2) K/uL Immature Gran # (Auto) 0.02 (0.00-0.02) K/uL Absolute Nucleated RBC (0-0) K/uL Nucleated RBC % (auto) % RBC Morphology Unremarkable Cord ABG pH (7.1-7.38) Cord ABG pCO2 (39.1-73.5) mmHg Cord ABG pO2 (4.1-31.7) mmHg Cord ABG HCO3 (19.7-28.5) mmol/L Cord ABG Base Excess (-9-1.8) mEq/L Cord ABG O2 Sat (<60) % Cord VBG pH (7.20-7.44) Cord VBG pCO2 (30.4-57.2) mmHg Cord VBG pO2 (14.1-43.3) mmHg Cord VBG HCO3 (18.4-26.8) mmol/L Cord VBG Base Excess (-7.7-1.9) mEq/L Cord VBG O2 Sat (<68) % Blood Gas Comments Sodium (136-145) mmol/L Potassium (3.5-5.1) mmol/L Chloride (98-107) mmol/L Carbon Dioxide (21-32) mmol/L Anion Gap (3-11) BUN (7-18) mg/dl Creatinine (0.6-1.2) mg/dl Est Cr Clr Drug Dosing ml/min Est GFR ( Amer) Est GFR (Non-Af Amer) BUN/Creatinine Ratio (10-20) Glucose (70-99) mg/dl Calcium (8.5-10.1) mg/dl Total Bilirubin (0.2-1) mg/dl AST (15-37) U/L ALT (12-78) U/L Alkaline Phosphatase (45-117) U/L Total Protein (6.4-8.2) gm/dl Albumin (3.4-5.0) gm/dl Globulin (2.5-4.0) gm/dl Albumin/Globulin Ratio (0.9-2) Urine Blood 1+ H (Negative) Urine RBC (Auto) 5-10 H (0-4) /hpf Blood Type Blood Type Recheck Antibody Screen Crossmatch Transfusion React Date 07/23/2020 Transfusion React Time 1710 Tx React Symptoms Reaction Clerical Check None Found Lab Clerical Err Check None Found React Component Return PCLR Volume Returned 300 Pre-Trans Blood Type A POSITIVE Pre-Trans Vis Hemolysis No Pre-Trans RYLAN Negative (Negative) Pre-Trans RYLAN IgG Neg (Negative) Pre-Trans RYLAN Poly Neg (Negative) Pre-Trans RYLAN C3b, C3d Neg (Negative) Post-Trans Blood Type A POSITIVE Post-Tx Visible Hemolys No Post-Trans RYLAN Negative (Negative) Post-Trans RYLAN IgG Neg (Negative) Post-Trans RYLAN Poly Neg (Negative) Post-Trans RYLAN C3b, C3d Neg (Negative) Post-Trans Ur Hemoglobin Reaction Path Interpret Transfusion Serv Com 07/24/20 07/25/20 Range/Units 06:16 08:01 WBC 6.79 (4.8-10.8) K/uL RBC 2.53 L (4.2-5.4) M/uL Hgb 7.4 L 7.7 L (12.0-16.0) g/dL Hct 20.5 L* 22.2 L (37-47) % MCV 87.7 (80-100) fL MCH 30.4 (25-34) pg MCHC 34.7 (32-36) g/dL RDW Std Deviation 44.7 (36.4-46.3) fL RDW Coeff of Neeta 14.4 (11.5-14.5) % Plt Count 208 (130-400) K/uL MPV 10.2 (7.4-10.4) fL Immature Gran % (Auto) 0.9 % Neut % (Auto) 66.5 % Lymph % (Auto) 26.8 % Mercer % (Auto) 4.4 % Eos % (Auto) 1.0 % Baso % (Auto) 0.4 % Neut # (Auto) 4.51 (1.4-6.5) K/uL Lymph # (Auto) 1.82 (1.2-3.4) K/uL Mercer # (Auto) 0.30 (0.11-0.59) K/uL Eos # (Auto) 0.07 (0-0.5) K/uL Baso # (Auto) 0.03 (0-0.2) K/uL Immature Gran # (Auto) 0.06 H (0.00-0.02) K/uL Absolute Nucleated RBC 0.02 H (0-0) K/uL Nucleated RBC % (auto) 0.4 % RBC Morphology Cord ABG pH (7.1-7.38) Cord ABG pCO2 (39.1-73.5) mmHg Cord ABG pO2 (4.1-31.7) mmHg Cord ABG HCO3 (19.7-28.5) mmol/L Cord ABG Base Excess (-9-1.8) mEq/L Cord ABG O2 Sat (<60) % Cord VBG pH (7.20-7.44) Cord VBG pCO2 (30.4-57.2) mmHg Cord VBG pO2 (14.1-43.3) mmHg Cord VBG HCO3 (18.4-26.8) mmol/L Cord VBG Base Excess (-7.7-1.9) mEq/L Cord VBG O2 Sat (<68) % Blood Gas Comments Sodium (136-145) mmol/L Potassium (3.5-5.1) mmol/L Chloride (98-107) mmol/L Carbon Dioxide (21-32) mmol/L Anion Gap (3-11) BUN (7-18) mg/dl Creatinine (0.6-1.2) mg/dl Est Cr Clr Drug Dosing ml/min Est GFR ( Amer) Est GFR (Non-Af Amer) BUN/Creatinine Ratio (10-20) Glucose (70-99) mg/dl Calcium (8.5-10.1) mg/dl Total Bilirubin (0.2-1) mg/dl AST (15-37) U/L ALT (12-78) U/L Alkaline Phosphatase (45-117) U/L Total Protein (6.4-8.2) gm/dl Albumin (3.4-5.0) gm/dl Globulin (2.5-4.0) gm/dl Albumin/Globulin Ratio (0.9-2) Urine Blood (Negative) Urine RBC (Auto) (0-4) /hpf Blood Type Blood Type Recheck Antibody Screen Crossmatch Transfusion React Date Transfusion React Time Tx React Symptoms Reaction Clerical Check Lab Clerical Err Check React Component Return Volume Returned Pre-Trans Blood Type Pre-Trans Vis Hemolysis Pre-Trans RYLAN (Negative) Pre-Trans RYLAN IgG (Negative) Pre-Trans RYLAN Poly (Negative) Pre-Trans RYLAN C3b, C3d (Negative) Post-Trans Blood Type Post-Tx Visible Hemolys Post-Trans RYLAN (Negative) Post-Trans RYLAN IgG (Negative) Post-Trans RYLAN Poly (Negative) Post-Trans RYLAN C3b, C3d (Negative) Post-Trans Ur Hemoglobin Reaction Path Interpret Transfusion Serv Com Vital Signs Temp Pulse Resp BP Pulse Ox 07/24/20 23:05 37.1 C 81 18 127/85 07/24/20 20:10 36.7 C 90 18 145/89 H 07/24/20 16:30 37.2 C 97 H 18 127/62 96 PE: General: Alert, orientedx3, NAD Abd: soft, NT, fundus firm, below Umbilicus Perineum intact, Lochia rubra minimal Ext; NT, no edema AP: 30 yo s/p , ppd# 3 VSS Afebrile doing well s/p 1 unit of PRBCC, unable to tolerate 2nd unit H&H stable, asymptomatic Discussed when to call Discussed d/c meds, iron All questions were answered D/C home , f/u in office in 2-3 weeks Results & Data ([facility]) Vital Signs (Past 12 Hours) Vital Signs Temp Pulse Resp BP 07/24/20 23:05 37.1 C 81 18 127/85
[2020-07-25] MEDS: SERTRALINE HCL 50 MG TABLET PO SCH (12:24)
== END 2020-07-25 13:43 | disposition home or self-care (01) | DRG 768 ==
LOC: OPB 06:52 → 4S1 06:58 → 4S2 07-22 13:15